=== PATIENT | female | born 1965 | race Caucasian/White ===

== ENCOUNTER 2019-05-03 16:17 | Emergency (ER) | payer OTHER ==
[~2019-05-03] VITALS: Ht 175.3 cm; Wt 78.0 kg
[2019-05-03] MEDS ORDERED: LANTUS SOL100 UNIT/1 (16:28)
[2019-05-03] MEDS ORDERED: COZAAR100 MG (16:28)
[2019-05-03] MEDS ORDERED: HUMALOG100 UNIT/1 (16:28)
[2019-05-03] MEDS ORDERED: METFORMIN HCL500 MG (16:28)
== END 2019-05-03 17:37 | disposition home or self-care (01) ==
LOC: ER 16:17
DX: S61.226A Laceration with foreign body of right little finger without damage to nail, initial encounter (principal); W45.8XXA Other foreign body or object entering through skin, initial encounter; Y93.89 Activity, other specified; Y92.098 Other place in other non-institutional residence as the place of occurrence of the external cause; Y99.8 Other external cause status

== ENCOUNTER 2019-05-13 10:22 | Emergency (ER) | payer OTHER ==
[~2019-05-13] VITALS: Ht 175.3 cm; Wt 75.7 kg
[~2019-05-13 10:22] MED LIST: COZAAR100 MG; HUMALOG100 UNIT/1; LANTUS SOL100 UNIT/1; METFORMIN HCL500 MG
== END 2019-05-13 13:55 | disposition home or self-care (01) ==
LOC: ER 10:22
DX: Z48.02 Encounter for removal of sutures (principal)